=== PATIENT | female | born 1965 | race Caucasian/White ===

== ENCOUNTER → 2018-08-11 | Day surgery (SDC) | payer OTHER ==
[~2018-08-11] MED LIST: FENTANYL CITRATE/PF 100MCG/2 ML INJ ONE; LIDOCAINE HCL 2% LOCAL INJ 5 ML SDV VIAL INJ ONE; ONDANSETRON HCL INJ 2 MG/ML VIAL ONE; PROPOFOL IV EMULSION 10 MG/ML 20 ML VIAL ONE; TERBINAFINE PO
[2018-08-11 13:15] VITALS: BP 122/72
--- NOTE | 2018-08-11 14:36 | Operative Report ---
DATE OF PROCEDURE: August 11, 2018 PROCEDURE: Colonoscopy. PREOPERATIVE DIAGNOSIS: Here for colon cancer screening. PROCEDURE: After informed written consent and premedications with monitored anesthesia care, standard video Olympus colonoscope was introduced in the rectum and all the way into the terminal ileum. Terminal ileum, cecum, appendiceal orifice all appeared to be normal. The proximal ascending colon showed an 8-mm polyp, which was removed using a cold snare. The transverse and descending colon unremarkable. Sigmoid showed scattered diverticulosis. In the sigmoid colon and the midsigmoid, there was a 6-mm polyp removed by cold snare. Retroflexion of the rectum was normal. IMPRESSION 1. Diverticulosis. 2. Colon polyp. RECOMMENDATIONS: Colonoscopy in 3 years. The patient to follow up in the office in 3-4 weeks to check the biopsy results. Further recommendations will be based on the patient's clinical course. Job#: [id number]
== END | disposition home or self-care (01) ==
LOC: OR 10:23
PROVIDERS: ATTEND Internal Medicine Gastroenterology
DX: Z12.11 Encounter for screening for malignant neoplasm of colon (principal); D12.2 Benign neoplasm of ascending colon; K57.30 Diverticulosis of large intestine without perforation or abscess without bleeding; K21.9 Gastro-esophageal reflux disease without esophagitis; Z71.3 Dietary counseling and surveillance; E66.9 Obesity, unspecified; Z01.810 Encounter for preprocedural cardiovascular examination; Z68.32 Body mass index [BMI] 32.0-32.9, adult; Z87.891 Personal history of nicotine dependence
CPT/HCPCS: 45385; 93005; J2001; J2405; J2704; 45378